=== PATIENT | female | born 1990 | race Caucasian/White ===

== ENCOUNTER 2016-07-02 22:51 | Emergency (ER) | payer MEDICAID, OTHER ==
[2016-07-02 22:52] VITALS: BMI 31.3
[2016-07-02 23:19] VITALS: BP 136/86; PULSE 83; RESP 16; TEMP 99.3; O2SAT 100
[2016-07-02] MEDS ORDERED: Oxycodone/Acetaminophen 5/325 mg Tab ONE (23:30)
[2016-07-02] MEDS ORDERED: Oxycodone/Acetaminophen 5/325 mg Tab PO STA (23:33)
--- NOTE | 2016-07-02 23:36 | ED PDOC ---
HPI: Dental Pain/Injury Time Seen by Provider: 07/02/16 22:53 Chief Complaint (Nursing): Dental Pain Chief Complaint (Provider): Right sided facial swelling History Per: Patient History/Exam Limitations: no limitations Onset/Duration Of Symptoms: Days Current Symptoms Are (Timing): Still Present Severity: Severe Pain Scale Rating Of: 9 Additional Complaint(s): Pt states she was seen at a dental clinic, given antibiotics and told to return in a week. When she went back a few days ago they told her to come back next week because the swelling still did not go down enough, however they did not give her more antibiotics and it was her last day. PT was seen at [facility] [place] and told she would have to wait a few hours for a surgeon. Pt states she had to bead picker her kids so she left. Past Medical History Reviewed: Historical Data, Nursing Documentation, Vital Signs Vital Signs: Last Vital Signs Temp 99.3 F 07/02/16 23:15 Pulse 83 07/02/16 23:15 Resp 16 07/02/16 23:15 BP 136/86 07/02/16 23:15 Pulse Ox 100 07/02/16 23:15 - Medical History PMH: Anemia, Asthma (NEVER HOSPITALIZED) Denies: Chronic Kidney Disease - Surgical History Surgical History: No Surg Hx - Family History Family History: States: Unknown Family Hx - Home Medications Home Medications: Ambulatory Orders Medication Instructions Recorded Albuterol 1 puff IH DAILY PRN 07/18/14 oxyCODONE/Acetaminophen [Percocet 1 ea PO Q6H PRN #3 tab 07/02/16 5/325 mg Tab] - Allergies Allergies/Adverse Reactions: Allergies Allergy/AdvReac Type Severity Reaction Status Date / Time No Known Allergies Allergy Verified 07/02/16 23:15 Review of Systems ROS Statement: Except As Marked, All Systems Reviewed And Found Negative ENT: Positive for: Other (Right facial swelling) Physical Exam - Reviewed Nursing Documentation Reviewed: Yes Vital Signs Reviewed: Yes - Physical Exam Appears: Positive for: Well, Non-toxic, No Acute Distress Head Exam: Positive for: ATRAUMATIC, NORMAL INSPECTION, NORMOCEPHALIC Skin: Positive for: Normal Color, Warm, DRY Eye Exam: Positive for: Normal appearance ENT: Positive for: Other ((+) dental decay, right molar lower without surrounding edema or erythema, no abscess formation). Negative for: Normal ENT Inspection Neck: Positive for: Normal, Painless ROM Respiratory: Negative for: Accessory Muscle Use Back: Positive for: Normal Inspection Extremity: Positive for: Normal ROM Neurologic/Psych: Positive for: Alert, Oriented - ECG O2 Sat by Pulse Oximetry: 100 Disposition - Clinical Impression Clinical Impression: Dental caries - Patient ED Disposition Is Patient to be Admitted: No Counseled Patient/Family Regarding: Diagnosis, Need For Followup, Rx Given - Disposition Referrals: [facility] [Outside] Disposition: Routine/Home Disposition Time: 23:38 Condition: GOOD Prescriptions: oxyCODONE/Acetaminophen [Percocet 5/325 mg Tab] 1 ea PO Q6H PRN #3 tab PRN Reason: Pain, Severe (8-10) Instructions: Dental Caries (ED)
== END 2016-07-03 00:53 | disposition home or self-care (01) ==
LOC: H.ER 22:51
DX: K02.9 Dental caries, unspecified (principal)